=== PATIENT | female | born 1980 | race Caucasian/White ===

== ENCOUNTER → 2016-07-07 | Outpatient (CLI) | payer MEDICAID | LOC: FLAB 16:15 | PROVIDERS: ATTEND Physician Assistant | DX: M25.561 Pain in right knee (principal) ==

== ENCOUNTER 2017-08-10 20:58 | Emergency (ER) | payer MEDICAID ==
--- NOTE | 2017-08-10 22:03 | EDPHY ---
H & P Stated Complaint: BODY ACHES, CHILLS, SORE THROAT, CRENSHAW Time Seen by Provider: 08/10/17 22:03 HPI/ROS: HPI CHIEF COMPLAINT: Multiple complaints. HISTORY OF PRESENT ILLNESS: Patient is a 36-year-old female, she is otherwise healthy she has a history of asthma, she presents emergency room with flu-like illness, chills, muscle aches, joint pain and generalized fatigue. Patient states she had a normal day today however approximately 3-4 hours ago she started feeling ill. She denies any chest pain or shortness of breath denies productive cough. Past Medical History: Asthma Past Surgical History: Tubal ligation. Social History: Smokes tobacco daily. Denies alcohol or illicit drugs. Family History: Noncontributory ROS REVIEW OF SYSTEMS: A comprehensive 10 point review of systems is otherwise negative aside from elements mentioned in the history of present illness. Exam Constitutional appears nontoxic no acute distress triage nursing summary reviewed, vital signs reviewed, awake/alert. Eyes normal conjunctivae and sclera, EOMI, PERRLA. HENT normal inspection, atraumatic, moist mucus membranes, no epistaxis, neck supple/ no meningismus, no raccoon eyes. Respiratory clear to auscultation bilaterally, normal breath sounds, no respiratory distress, no wheezing. Cardiovascular rate normal, regular rhythm, no murmur, no edema, distal pulses normal. Gastrointestinal soft, non-tender, no rebound, no guarding, normal bowel sounds, no distension, no pulsatile mass. Genitourinary no CVA tenderness. Musculoskeletal no midline vertebral tenderness, full range of motion, no calf swelling, no tenderness of extremities, no meningismus, good pulses, neurovascularly intact. Skin no rash pink, warm, & dry, no rash, skin atraumatic. Neurologic awake, alert and oriented x 3, AAOx3, moves all 4 extremities equally, motor intact, sensory intact, CN II-XII intact, normal cerebellar, normal vision, normal speech. Psychiatric normal mood/affect. Heme/Lymph/Immune no lymphadenopathy. Differential Diagnosis: Includes but is not limited to in a particular order viral syndrome, upper respiratory tract infection, pneumonia, UTI, dehydration, electrolyte disturbance, infection, sepsis Medical Decision Making: Plan for this patient IV establishment with blood draw , IV fluids, check influenza, check UA, basic blood work and re-evaluate. Re-evaluation: 2356: Patient is feeling much better. She feels much better after IV fluids, her workup is unremarkable she has a chest x-ray shows no evidence pneumonia, urinalysis shows no evidence of infection blood work is reassuring. Most likely has a viral syndrome. She has no chest pain or shortness of breath. Recommend she alternate Tylenol/motrin for fever and pain control. Additionally recommend return emergency room if there is worsening symptoms questions or concerns Source: Patient - Personal History LMP (Females 10-55): Now Current Tetanus/Diphtheria Vaccine: Yes - Medical/Surgical History Hx Asthma: No Hx Chronic Respiratory Disease: No Hx Diabetes: No Hx Cardiac Disease: No Hx Renal Disease: No Hx Cirrhosis: No Hx Alcoholism: No Hx HIV/AIDS: No Hx Splenectomy or Spleen Trauma: No Other PMH: Tubaligation, left leg "reset", PTSD, OCD, Manic depression, bipolar - Social History Smoking Status: Current every day smoker Constitutional: Initial Vital Signs Temperature (C) 37.1 C 08/10/17 21:01 Heart Rate 105 H 08/10/17 21:01 Respiratory Rate 18 08/10/17 21:01 Blood Pressure 126/83 H 08/10/17 21:01 O2 Sat (%) 97 08/10/17 21:01 O2 Delivery Mode Room Air Allergies/Adverse Reactions: No Known Allergies Allergy (Verified 04/17/15 09:21) Home Medications: Medication Instructions Recorded Proair Hfa 08/10/17 Qvar 08/10/17 Medical Decision Making - Diagnostics Imaging Results: Imaging Impressions Chest X-Ray 08/10/17 23:00 Impression: Mild central bronchitis; otherwise negative chest.. - Data Points Laboratory Results: Laboratory Results 08/10/17 22:29 08/10/17 22:29 08/10/17 08/10/17 08/10/17 22:50 22:40 22:34 WBC RBC Hgb Hct MCV MCH MCHC RDW Plt Count MPV Neut % (Auto) Lymph % (Auto) [place] % (Auto) Eos % (Auto) Baso % (Auto) Nucleat RBC Rel Count Absolute Neuts (auto) Absolute Lymphs (auto) Absolute Monos (auto) Absolute Eos (auto) Absolute Basos (auto) Absolute Nucleated RBC Immature Gran % Immature Gran # VBG Lactic Acid Sodium Potassium Chloride Carbon Dioxide Anion Gap BUN Creatinine Estimated GFR Glucose Calcium Total Bilirubin Conjugated Bilirubin Unconjugated Bilirubin AST ALT Alkaline Phosphatase POC Troponin I 0.00 ng/mL ng/mL (0.00-0.08) Total Protein Albumin Lipase Beta HCG, Qual Urine Color YELLOW Urine Appearance CLEAR Urine pH 6.0 (5.0-7.5) Ur Specific [place] 1.015 (1.002-1.030) Urine Protein NEGATIVE (NEGATIVE) Urine Ketones NEGATIVE (NEGATIVE) Urine Blood NEGATIVE (NEGATIVE) Urine Nitrate NEGATIVE (NEGATIVE) Urine Bilirubin NEGATIVE (NEGATIVE) Urine Urobilinogen NEGATIVE EU EU (0.2-1.0) Ur Leukocyte Esterase NEGATIVE (NEGATIVE) Urine Glucose NEGATIVE (NEGATIVE) Nasal Influenza A PCR NEGATIVE FOR FLU A (NEGATIVE) Nasal Influenza B PCR NEGATIVE FOR FLU B (NEGATIVE) 08/10/17 08/10/17 08/10/17 22:29 22:29 22:29 WBC 9.80 10^3/uL H 10^3/uL (3.80-9.50) RBC 4.99 10^6/uL 10^6/uL (4.18-5.33) Hgb 12.8 g/dL g/dL (12.6-16.3) Hct 39.2 % % (38.0-47.0) MCV 78.6 fL L fL (81.5-99.8) MCH 25.7 pg L pg (27.9-34.1) MCHC 32.7 g/dL g/dL (32.4-36.7) RDW 15.7 % H % (11.5-15.2) Plt Count 343 10^3/uL 10^3/uL (150-400) MPV 9.8 fL fL (8.7-11.7) Neut % (Auto) 81.0 % H % (39.3-74.2) Lymph % (Auto) 11.6 % L % (15.0-45.0) Walton % (Auto) 5.0 % % (4.5-13.0) Eos % (Auto) 1.5 % % (0.6-7.6) Baso % (Auto) 0.6 % % (0.3-1.7) Nucleat RBC Rel Count 0.0 % % (0.0-0.2) Absolute Neuts (auto) 7.93 10^3/uL H 10^3/uL (1.70-6.50) Absolute Lymphs (auto) 1.14 10^3/uL 10^3/uL (1.00-3.00) Absolute Monos (auto) 0.49 10^3/uL 10^3/uL (0.30-0.80) Absolute Eos (auto) 0.15 10^3/uL 10^3/uL (0.03-0.40) Absolute Basos (auto) 0.06 10^3/uL 10^3/uL (0.02-0.10) Absolute Nucleated RBC 0.00 10^3/uL 10^3/uL (0-0.01) Immature Gran % 0.3 % % (0.0-1.1) Immature Gran # 0.03 10^3/uL 10^3/uL (0.00-0.10) VBG Lactic Acid Sodium 139 mEq/L mEq/L (135-145) Potassium 3.8 mEq/L mEq/L (3.3-5.0) Chloride 105 mEq/L mEq/L (97-110) Carbon Dioxide 23 mEq/l mEq/l (22-31) Anion Gap 11 mEq/L mEq/L (8-16) BUN 11 mg/dL mg/dL (7-23) Creatinine 0.7 mg/dL mg/dL (0.6-1.0) Estimated GFR > 60 Glucose 76 mg/dL mg/dL (70-100) Calcium 9.1 mg/dL mg/dL (8.5-10.4) Total Bilirubin 0.3 mg/dL mg/dL (0.1-1.4) Conjugated Bilirubin 0.2 mg/dL mg/dL (0.0-0.5) Unconjugated Bilirubin 0.1 mg/dL mg/dL (0.0-1.1) AST 19 IU/L IU/L (14-46) ALT 30 IU/L IU/L (9-52) Alkaline Phosphatase 67 IU/L IU/L (38-126) POC Troponin I Total Protein 8.1 g/dL g/dL (6.3-8.2) Albumin 4.3 g/dL g/dL (3.5-5.0) Lipase 76 IU/L IU/L (23-300) Beta HCG, Qual NEGATIVE Urine Color Urine Appearance Urine pH Ur Specific [place] Urine Protein Urine Ketones Urine Blood Urine Nitrate Urine Bilirubin Urine Urobilinogen Ur Leukocyte Esterase Urine Glucose Nasal Influenza A PCR Nasal Influenza B PCR 08/10/17 22:29 WBC RBC Hgb Hct MCV MCH MCHC RDW Plt Count MPV Neut % (Auto) Lymph % (Auto) [place] % (Auto) Eos % (Auto) Baso % (Auto) Nucleat RBC Rel Count Absolute Neuts (auto) Absolute Lymphs (auto) Absolute Monos (auto) Absolute Eos (auto) Absolute Basos (auto) Absolute Nucleated RBC Immature Gran % Immature Gran # VBG Lactic Acid 1.3 mmol/L mmol/L (0.7-2.1) Sodium Potassium Chloride Carbon Dioxide Anion Gap BUN Creatinine Estimated GFR Glucose Calcium Total Bilirubin Conjugated Bilirubin Unconjugated Bilirubin AST ALT Alkaline Phosphatase POC Troponin I Total Protein Albumin Lipase Beta HCG, Qual Urine Color Urine Appearance Urine pH Ur Specific [place] Urine Protein Urine Ketones Urine Blood Urine Nitrate Urine Bilirubin Urine Urobilinogen Ur Leukocyte Esterase Urine Glucose Nasal Influenza A PCR Nasal Influenza B PCR Medications Given: Discontinued Medications Hydromorphone HCl (Dilaudid) 0.5 mg IVP EDNOW ONE Stop: 08/10/17 22:12 Last Admin: 08/10/17 22:28 Dose: 0.5 mg Sodium Chloride (Ns) 1,000 mls @ 0 mls/hr IV EDNOW ONE; Wide Open PRN Reason: Protocol Stop: 08/10/17 22:12 Last Admin: 08/10/17 22:28 Dose: 1,000 mls Ondansetron HCl (Zofran) 4 mg IVP EDNOW ONE Stop: 08/10/17 22:12 Last Admin: 08/10/17 22:28 Dose: 4 mg Point of Care Test Results: Chemistry 08/10/17 22:50 POC Troponin I 0.00 ng/mL ng/mL (0.00-0.08) Departure - Departure Disposition: Home, Routine, Self-Care Clinical Impression: Viral syndrome Condition: Good Instructions: Viral Syndrome (ED) Additional Instructions: 1. Drink lots of fluids stay well-hydrated. 2. Return emergency room if develops worsening symptoms includes high fever, vomiting questions or concerns. Referrals: Hanny Peter [Primary Care Provider] - As per Instructions
[2017-08-10] MEDS ORDERED: NS 1,000 ML IV ONE (22:11)
[2017-08-10] MEDS ORDERED: HYDROmorphONE/DILAUDID 2 MG/ML INJ IVP ONE (22:11)
[2017-08-10] MEDS ORDERED: ONDANSETRON 4 MG/2 ML VIAL IVP ONE (22:11)
[2017-08-10] MEDS ORDERED: HYDROmorphONE/DILAUDID 1 MG/ML INJ ONE (22:14)
[2017-08-10 22:38] LABS: PLATELET COUNT 343 10^3/uL (150-400)
[2017-08-10 23:57] VITALS: BP 124/82
[2017-08-10] MEDS ORDERED: HYDROCODONE/APAP 5/325 TAB PO ONE (23:58)
== END 2017-08-11 00:13 | disposition home or self-care (01) ==
DX: B34.9 Viral infection, unspecified (principal); J45.909 Unspecified asthma, uncomplicated; F17.200 Nicotine dependence, unspecified, uncomplicated; E86.9 Volume depletion, unspecified
CPT/HCPCS: 84484-PO; 96374; J1170; J2405

== ENCOUNTER 2018-05-04 23:35 | Emergency (ER) | payer OTHER, MEDICAID ==
--- NOTE | 2018-05-05 00:32 | EDPHY ---
H & P Stated Complaint: R knee painxyear, increased pain/problems, PT told her to come in Time Seen by Provider: 05/05/18 00:21 HPI/ROS: Chief Complaint: Knee pain HPI: 29-year-old woman who is been having persistent knee pain on her right knee for the last year. She has seen an orthopedist for this, had an MRI is been having physical therapy. Patient states her knee is not improving. She has episodes where she feels spasms in her knee and has worsening pain for 3 days. She has been taking ibuprofen. She has seen physical therapy. She has not seen orthopedists for about a month. No new injuries or falls. No numbness or weakness. No redness. Does know a bulge in the middle portion of her upper knee. She is presenting tonight complaining of worsening pain and inability to sleep. ROS: 10 systems were reviewed and were negative except those elements noted in the HPI. Social History: No smoking, no alcohol, no recreational drug use Family History: non-contributory Physical Exam: Gen: Awake, Alert, No Distress Ext: no edema, patient has tenderness on her medial knee along the extensor tendon insertion. No lateral or medial tenderness. No swelling, no erythema, she is not able to flex past 45 or fully extend secondary to pain. Skin is completely normal. Distally her calves are soft and nontender. She has 2+ dorsalis pedis pulses. Capillary refills less than 2 sec. Sensations intact. No deformity. Skin: no rash Neuro: CN II-XII intact, Sensation grossly intact, Strength 5/5 in bilateral upper and lower extremities - Personal History Current Tetanus/Diphtheria Vaccine: Yes Current Tetanus Diphtheria and Acellular Pertussis (TDAP): Yes - Medical/Surgical History Hx Asthma: No Hx Chronic Respiratory Disease: No Hx Diabetes: No Hx Cardiac Disease: No Hx Renal Disease: No Hx Cirrhosis: No Hx Alcoholism: No Hx HIV/AIDS: No Hx Splenectomy or Spleen Trauma: No Other PMH: Tubaligation, left leg "reset", PTSD, OCD, Manic depression, bipolar - Social History Smoking Status: Current every day smoker Constitutional: Initial Vital Signs Temperature (C) 36.9 C 05/04/18 23:41 Heart Rate 81 05/04/18 23:41 Respiratory Rate 20 05/04/18 23:41 Blood Pressure 133/92 H 05/04/18 23:41 O2 Sat (%) 97 05/04/18 23:41 O2 Delivery Mode Room Air Allergies/Adverse Reactions: No Known Allergies Allergy (Verified 05/04/18 23:40) Home Medications: Medication Instructions Recorded Proair Hfa 08/10/17 Fluticasone Propionate [Flovent 05/04/18 Hfa] Medical Decision Making ED Course/Re-evaluation: 29-year-old woman with chronic knee pain presenting with an exacerbation without any injuries. She has no effusion. She does have tenderness along the extensor tendon insertion on the medial aspect. Symptoms consistent with possible tendonitis. I do not think imaging is indicated at this time. Will send her home with oral analgesia and instructions to follow up with her orthopedist. Departure - Departure Disposition: Home, Routine, Self-Care Clinical Impression: Knee pain Condition: Good Instructions: Knee Pain (ED), Hydrocodone/Acetaminophen (By mouth) Additional Instructions: Follow up with your orthopedist in 2-3 days for further evaluation. Referrals: Hanny Peter [Primary Care Provider] - As per Instructions
[2018-05-05] MEDS ORDERED: HYDROCOD/APAP 5/325 PREPACK#6 BTL TAKEHOME ONE (00:35)
[2018-05-05 00:42] VITALS: BP 132/76
== END 2018-05-05 00:42 | disposition home or self-care (01) ==
DX: M25.561 Pain in right knee (principal)